=== PATIENT | female | born 1960 | race Caucasian/White ===

== ENCOUNTER → 2017-06-15 | Outpatient (CLI) | payer BC ==
--- NOTE | 2017-06-15 22:00 | CT ---
EXAMINATION TYPE: CT shoulder RT wo con DATE OF EXAM: 06/15/2017 COMPARISON: NONE HISTORY: Right shoulder pain, injury 05/20/17 per patient. Fracture of upper and right humerus initia l encounter per order. CT DLP: 832.50 mGycm Automated exposure control for dose reduction was used. FINDINGS: There is acute comminuted displaced fracture in the right proximal humerus with fracture fragments in volving greater tuberosity, lesser tuberosity, femoral head and neck all identified. Femoral neck com ponent is impacted and estimated 1.8 cm medially displaced on coronal images, some anterior displacem ent is seen on sagittal images. No significant abnormal angulation is present. Glenohumeral joint spa ce shows [id number] spurring without dislocation. No ossific loose bodies are identified. Acrom ioclavicular joint shows narrowing with mild spurring inferiorly. Visualized scapula is intact. Visualized right lung shows mild emphysematous change. Visualized ribs are intact. Clavicle is intact . IMPRESSION: ACUTE COMMINUTED 4 PART PROXIMAL RIGHT HUMERAL FRACTURE WITH GREATER THAN 1 CM DISPLACEMENT
== END | disposition home or self-care (01) ==
LOC: RADCTMAIN 18:37
PROVIDERS: ATTEND Orthopaedic Surgery
DX: S42.201A Unspecified fracture of upper end of right humerus, initial encounter for closed fracture (principal)

== ENCOUNTER → 2022-06-04 | Outpatient (CLI) | payer MEDICAID ==
--- NOTE | 2022-06-04 12:37 | P.SLEEP ---
History of Present Illness DATE: 06/04/2022 CONSULTATION/NEW PATIENT EVALUATION HISTORY OF PRESENT ILLNESS/SLEEP-WAKE EVALUATION: 62 year old lady had been ev aluated in the sleep center for possible obstructive sleep apnea hypopnea syndrome. SLEEP SCHEDULE: Usually sleep schedule from 910 AM until 57 AM. FALLING ASLEEP: Usually no problems with falling asleep. DURING SLEEP: Patient has loud snoring and episodes of stop breathing during the sleep. She wakes up from sleep multiple times with up to 2 episodes of nocturia. Questionable positive history of hypnogogical hallucinations. No history of sleep paralysis, or cataplexy. DURING THE DAY/WAKE STATE: In the morning patient wake up tired. Cardinal sleepiness scale is normal 3. Patient usually doesn't take any naps. PAST MEDICAL HISTORY: Hypertension. PAST SURGICAL HISTORY: Right humerus surgery, ureter surgery. MEDICATIONS: Zestril 5 mg once a day. SOCIAL HISTORY: Positive for smoking for 40 pack years, patient continued to smoke, alcohol consumption occasional. FAMILY HISTORY: Hypertension, stroke, asthma, cancer, diabetes. REVIEW OF SYSTEMS: Loud snoring, multiple awakenings from sleep. No fevers. No double vision. No recent chest pain. No shortness of breath. No abdominal pain. No bleeding episodes. No blood in urine. No seizure episodes. PHYSICAL EXAMINATION: GENERAL: A pleasant patient without any distress. VITAL SIGNS: BP 134/82, HR 98, RR 16, weight 283 pounds, height 5 foot 9 inches, body mass index 41.7. HEENT: PERRLA, EOMI. Evaluation of oropharynx showed tongue protrudes midline, low position of soft palate Mallampati 3. NECK: Supple. No JVD. Thyroid is not palpable. 16 inches in circumference. LUNGS: Clear to percussion and to auscultation. Good air exchange. No wheezing or rhonchi. HEART: S1, S2 regular. No murmurs, gallops or rubs. ABDOMEN: Soft and nontender. Bowel sounds are present. No organomegaly appreciated. Obese EXTREMITIES: No clubbing or cyanosis. PHYSICAL DAMAGE APPRAISER: Awake, alert, and oriented x3. Cranial nerves 2 to 7 intact. There is no fasciculation or atrophy noted. No focal deficits observed. ASSESSMENT: 1. Loud snoring, multiple awakenings from sleep, low position of soft palate Mallampati 3, wide neck 16 inches in circumference. Obstructive sleep apnea- hypopnea syndrome. 2. Obesity body mass index 41.7. 3. Hypertension. 4. Status post right humerus surgery. 5 status post ureter surgery. 6 . Smokier for 40 pack years, continue to smoke. 7. Status post 2 C-sections. PLAN: 1. Polysomnography for evaluation of patient's breathing during sleep. 2. CPAP/BiPAP titration if sleep study confirms obstructive sleep apnea- hypopnea syndrome. 3. Preferable position during sleep on the side. 4. No driving if patient feels any sleepiness. Patient is aware of civil and criminal liability for unsafe driving. 5. Sleep hygiene with regular sleep time for at least 7.5-8 hours. 6. Watching and losing weight. Thank you very much for referring this patient for consultation. Sincerely, Luis F Whalen MD, PhD, FAASM. Diplomat of [place] Board of Sleep Medicine, Sleep Medicine Board by [place] [employer] Specialities [place] [employer] Supervisor of [facility] [place] Past Medical History Past Medical History: No Reported History History of Any Multi-Drug Resistant Organisms: None Reported Past Surgical History: Section, Cholecystectomy Additional Past Surgical History / Comment(s): KIDNEY Past Psychological History: No Psychological Hx Reported Past Alcohol Use History: Occasional Past Drug Use History: None Reported Medications and Allergies Home Medications Medication Instructions Recorded Confirmed Type ALPRAZolam [Xanax] 0.5 mg PO BID PRN #10 tablet 08/07/14 Rx Allergies Allergy/AdvReac Type Severity Reaction Status Date / Time Penicillins AdvReac Abdominal Verified 08/07/14 11:27 Pain Sleep Note - Sleep Note Sleep Note: Temperature: Pulse Rate: Respiratory Rate: Blood Pressure: SpO2: Height: Weight: BMI: Neck Circumference:
== END ==
LOC: SLEEP 10:54
PROVIDERS: ATTEND Internal Medicine
DX: G47.33 Obstructive sleep apnea (adult) (pediatric) (principal); E66.9 Obesity, unspecified; Z68.41 Body mass index [BMI] 40.0-44.9, adult; I10 Essential (primary) hypertension; Z98.890 Other specified postprocedural states; Z88.0 Allergy status to penicillin; F17.200 Nicotine dependence, unspecified, uncomplicated
CPT/HCPCS: 99211

== ENCOUNTER → 2024-03-27 | Outpatient (CLI) | payer BC ==
--- NOTE | 2024-03-27 16:34 | US ---
EXAMINATION TYPE: US kidneys/renal and bladder DATE OF EXAM: 03/27/2024 COMPARISON: NONE CLINICAL INDICATION: Female, 63 years old with history of N23 RENAL COLIC; Hx of stones TECHNIQUE: Grayscale and color Doppler imaging of the bilateral kidneys and urinary bladder: FINDINGS: EXAM MEASUREMENTS: Right Kidney: 12.6 x 4.5 x 4.2 cm Left Kidney: 10.8 x 5.6 x 5.1 cm Right Kidney: Anechoic area seen upper pole 5.8 x 3.2 x 5.2 cm and lower pole 2.1 x 2.6 x 2.6 cm. Left Kidney: Mild amount of hydronephrosis seen. Echogenic area lower pole 1.3 x .8 cm. Bladder: Not fully distended. Bilateral Jets seen: no No right hydronephrosis. Simple cyst within the right kidney. No right renal calculi. Mild left hydro nephrosis. Nonobstructing calculus within the left lower pole. No suspicious renal masses bilaterally . Urinary bladder is underdistended which limits evaluation. No ureteral jets identified. IMPRESSION: 1. Mild left hydronephrosis. 2. Nonobstructive left renal calculus. 3. Right renal simple cysts. [facility], , 03/27/2024 4:32 PM
--- NOTE | 2024-03-28 08:54 | XR ---
EXAMINATION TYPE: XR KUB DATE OF EXAM: 03/27/2024 Comparison: None Clinical History: 63-year-old female with bilateral flank pain, N23 RENAL COLIC Findings: Pelvic phleboliths on both sides. A 4 mm calcification right side of the pelvis is indeterminate. Lef t midabdominal calcifications measuring 6 mm and 5 mm. Cholecystectomy clips. Nonobstructive bowel gas pattern. Scattered moderate stool. Impression: 1. Pelvic phleboliths. A 4 mm calcification in the right side of the pelvis is indeterminate between phlebolith versus a distal ureteral stone. 2. A couple left-sided renal calculi measuring 5 mm and 6 mm. [facility], , 03/28/2024 8:51 AM
== END | disposition home or self-care (01) ==
LOC: RADUSWWP 16:01
PROVIDERS: ATTEND Urology
CPT/HCPCS: 74018; 76770